=== PATIENT | male | born 1985 | race Caucasian/White ===

== ENCOUNTER 2020-07-17 16:41 | Inpatient (IN) | payer OTHER ==
[~2020-07-17] VITALS: Ht 182.9 cm; Wt 108.7 kg
--- NOTE | 2020-07-17 09:59 | NUR ---
[facility] COVID TEST RESULTS FROM TEST DATED 07/15/20 - NEGATIVE.
[2020-07-18] MEDS ORDERED: ONDANSETRON ODT4 MG SUBLING (10:24)
[2020-07-18] MEDS ORDERED: TYLENOL325 MG PO (10:25)
[2020-07-18] MEDS ORDERED: SENNA PLUS TAB1 EACH PO (10:27)
[2020-07-18] MEDS ORDERED: MILK OF MA2400 MG/11 PO (10:30)
[2020-07-18] MEDS ORDERED: SUPER THERAVIT1 EACH PO (10:31)
[2020-07-18] MEDS ORDERED: FOLIC ACID1 MG PO (10:32)
[2020-07-18] MEDS ORDERED: VITAMIN B-1100 M2 PO (10:33)
[2020-07-18] MEDS ORDERED: LORAZEPAM 1 MG T1 MG PO (10:37)
[2020-07-18] MEDS ORDERED: LORAZEPAM2 MG/1 ML IM (10:39)
[2020-07-18] MEDS ORDERED: HALDOL5 MG/1 ML IM (10:43)
[2020-07-18] MEDS ORDERED: BENADRYL25 MG PO (10:44)
[2020-07-18] MEDS ORDERED: CLONIDINE HCL0.1 MG PO (10:47)
[2020-07-18] MEDS ORDERED: NEURONTIN 300M300 M2 PO (10:48)
[2020-07-18] MEDS ORDERED: DESYREL150 MG PO (10:51)
[2020-07-18] MEDS ORDERED: GEODON20 MG PO (10:53)
[2020-07-18] MEDS ORDERED: CHLORDIAZEPOXIDE5 M2 PO (10:55)
[2020-07-18] MEDS ORDERED: LISINOPRIL20 MG PO (10:56)
[2020-07-18] MEDS ORDERED: NORVASC10 MG PO (10:58)
[2020-07-18] MEDS ORDERED: NORCO5 PO ×2 (10:59→11:00)
[2020-07-18] MEDS ORDERED: TRAMADOL 50 MG50 MG PO (11:01)
[2020-07-18] MEDS ORDERED: CEPHALEXIN500 MG PO (11:05)
[2020-07-18] MEDS ORDERED: BACTRIM DS TAB1 EAC1 PO (11:07)
[2020-07-18] MEDS ORDERED: DORYX MPC120 MG PO (11:09)
[2020-07-18] MEDS ORDERED: NORVASC5 MG PO (14:31)
[2020-07-18] MEDS ORDERED: CATAPRES-TTS 20.2 MG TRANSDERM (14:33)
[2020-07-18] MEDS ORDERED: TRAZODONE HCL50 MG PO ×2 (14:42→14:43)
[2020-07-18 16:45] VITALS: BP 147/96
--- NOTE | 2020-07-18 17:33 | NUR ---
1700 PATIENT ADMITTED TO ROOM 511 FROM [facility] AT [facility]. PATIENT IS ALERT AND ORIENTED X4. PATIENT GASPAR'S, REPEATER OPERATOR ARE EQUAL. LUNGS ARE CLEAR. ABD IS SOFT WITH BSX4. VOIDING ALICIA COLORED URINE PER URINAL. PATIENT WEARS GLASSES. PATIENT HAS HX OF HTN, ETOH ENCEPHALOPATHY AND L.E. WEAKNESS. PATIENT HAS NO IV ACCESS. CONSENTS SIGNED, CALL LIGHT IN REACH. PATIENT STARTED ON HEART HEALTHY DIET. FALL AND SAFETY PROTOCOLS IN PLACE. HAS RIGHT HIP PAIN. WILL HAVE PT, OT, ST EVALS IN A.M. PATIENT ORIENTED TO ROOM, CONTROLS, AND POLICY'S AND PROCEDURES AT [facility]. REHAB NOTEBOOK GIVEN TO PATIENT. WILL CONTINUE TO MONITER.
[2020-07-18 19:30] VITALS: BP 140/93
--- NOTE | 2020-07-19 01:27 | NUR ---
assumed care approx 1900 evening 07/18. pt sitting up in bed at change of shift. pt alert and oriented x4, appropriate and cooperative. pt given emotional support and active listening as he expressed desire to improve his situation and get stronger and go to alcoholic rehab in future and wants to be present for his young daughter and . pt took hs meds with water tolerating well. urinal at bedside. bed alarm on and call light in reach. will continue to monitor.
[2020-07-19 04:50] LABS: HEMATOCRIT 39.2 % (42.0-52.0); HEMOGLOBIN 13.5 gm/dL (14.0-18.0); MCH 32.1 pg (26.0-34.0); MCHC 34.4 g/dL (28.0-37.0); MCV 93.1 fL (80.0-100.0); RBC 4.21 mil/uL (4.50-6.00); RDW 14.5 % (10.5-14.5); WBC 7.7 thou/uL (4.0-11.0)
[2020-07-19 04:56] LABS: CALCIUM 9.4 mg/dL (8.5-10.1); CREATININE 0.9 mg/dL (0.7-1.3); POTASSIUM 4.4 mmol/L (3.5-5.1)
--- NOTE | 2020-07-19 11:25 | NUR ---
ASSUMED CARE AT 0700. SLEPT OFF AND ON. REPORTED R HIP PAIN AND TREATED WITH TYLENOL AND RECEIVED SOME PAIN RELIEF. ALERT AND ORIENTATED X 4, PLESANT AND COOPERATIVE. PT IS DETERMINED GETTING BETTER AND ABLE TO GO HOME SOON TO BE WITH FAMILY. NO SIGN OF ALCOHOL WITHDRAWAL. ABLE TO GET UP USING THE WALKER AND GAIT BELT. VOIDS PER URINAL. LAST BM 07/18. SEEN BY PSYCH AND SOME MEDS CHANGES DONE.
[2020-07-19 19:10] VITALS: BP 134/81
--- NOTE | 2020-07-20 02:35 | NUR ---
ASSUMED CARE AT 1900 ON 07/19. A&OX4. REPORTED PAIN IN LEFT ANKLE, PAIN MANAGED WITH PRN TYLENOL AND ICEPACK. PATIENT REPORTED PARTIAL PAIN RELEIF. PATIENT ALSO REQUESTED FOR TRAZADONE AT 2300 FOR DIFFICULTY SLEEPING. SLEEP AID WAS EFFECTIVE, PATIENT CURRENTLY SLEEPING. URINAL AT BED SIDE. BED ALARM ON. NO COCNERNS AT THIS TIME WILL CONTINUE TO MONITOR.
[2020-07-20 07:15] VITALS: BP 113/69
--- NOTE | 2020-07-20 09:00 | NUR ---
chart review. cm intro to linda. unable to visit at this time rt going to work with speech therapy. noted he lives at home in apartment with and baby. works at [employer], is nurse. 12 steps to apartment. has not been working. has family near by. went to hospital for aggression, alcohol binge drinking and was transfer here from another hospital for rehab. hx of alcohol and cocaine use. independent when feeling ok, hx falls. pt passed on to speech that he wants resources for outpt alcohol support. will cont following as needed for dc needs.
--- NOTE | 2020-07-20 11:22 | NUR ---
ASSUMED CARE AT 0700. PT REPORTED FEELING TIRED THIS MORNING BECAUSE HE DID NOT GET ENOUGH SLEEP FROM YESTERDAY. HE TOOK THE TRAZADONE AND MANAGED TO SLEEP FOR A SHORT WHILE. DR QUICK (PSYCH) INCREASED HIS TRAZADONE TO 100MG. ALSO NOTED HIS L MEDIAL FOOT HAS A BUNION WITH THE BLISTER OPEN AND NOTED BLEEDING AND SOME PUS. PINKY WITH WOUND CARE NOTIFIED AND WOUND CARE DONE. PT REPORTED L ANKLE PAIN AND RECEIVED RELIEF WITH TYLENOL. UP WITH MOD ASSIST TO THE BATHROOM. CARMELO ALVAREZ. HAD A LARGE BM TODAY. PARTICIPATING WITH THERAPY. NO REPORTED IMPULSIVENESS OR HALLUCINATION. SEEMS TO BE PLESANT AND COOPERATIVE.
[2020-07-20 20:16] VITALS: BP 105/62
--- NOTE | 2020-07-21 01:32 | NUR ---
PT ASSESSMENT COMPLETED. BP 105/62 THIS EVENING. CONTACTED ENROBING MACHINE CORDER REGARDING BP MEDICATION AND WAS ASKED TO HOLD DOSE THIS EVENING. PT TALKED A LOT ABOUT HIS ETOH HX AND WAS VERY THANKFUL FOR BEING SOBER AT THIS TIME. HE PLANS TO STAY SOBER. TALKED WITH PT ABOUT PLAN AFTER DC TO CONTINUE HIS SOBRIETY. PT WANTS TO HAVE A PLAN IN PLACE. PROVIDED MUCH EMOTIONAL SUPPORT. PT SLEEPING WELL AT THIS TIME AFTER GETTING SLEEPING MEDICATION THIS EVENING. PT VOIDING LARGE AMOUNT FO CYU. WILL CONTINUE TO MONITOR FREUQENTLY.
[2020-07-21 08:00] VITALS: BP 137/69
--- NOTE | 2020-07-21 08:36 | NUR ---
PT WAKING UP AT THIS TIME AND SITTING UP FOR BREAKFAST. PT TOOK MEDS WITH THIN WATER. PT STATED HE HAS SOME PAIN TO RT HIP OF 10 ON 1-10 SCALE. PT STATED HE HAS VASCULAR NECROSIS, BONE ON BONE. HE STATED HE BEARS WT TO LEFT HIP AND ANKLE TO OFFLOAD RT SIDE. PT HAS WOUND TO LEFT GREAT TOE AND DRESSING IS INTACT. PT TALKED ABOUT WHEN HE DISCHARGES TO GET OUT PATIENT ETOH REHAB.
--- NOTE | 2020-07-21 08:53 | HC ---
[facility] [place] [address] [place] [address] CONSULTATION Name: USHA FENG Radha Room #: 511-P ADM IN M.R.#: [id number] Admission: 07/18/20 Attend Phys: Demetrius Solomon MD Discharge: Date of : 81 Report #: [id number] THIS REPORT FOR: cc: FAM - Family physician unknown FAM - Family physician unknown Bennie Stewart DO ~ DOC #: [id number] BENNIE Stewart DO DATE OF SERVICE: 07/19/2020 INPATIENT PSYCHIATRIC CONSULTATION PRIMARY ATTENDING: Demetrius Solomon MD CONSULTING HOSPITALIST: Mohsen Paul MD. MIDDLE SCHOOL LIBRARIAN: Bennie Stewart DO SOURCES OF INFORMATION: Large packets of records from [facility] where the patient was admitted on 07/07/2020 and then transferred to [facility] where the patient was admitted on 07/10/2020, chart review here at [facility]. HISTORY OF PRESENT ILLNESS: This is a 35-year-old male who has been admitted to the rehabilitation unit at [facility]. Apparently, his is a nurse at [facility] and is on that insurance, so that is what got him sent over to the [facility]. The patient's admission at [facility] was the first thing that happened, so we will attempt to start with that as far as what has been happening with this young man, so on 07/07/2020, the patient presents from [facility] via EMS with reports from staff at [facility] that the patient is confused and hallucinating. The patient was alert and oriented x4. Denies complaints of pain. Last drink of alcohol per his report was Monday evening 07/05/2020. From [facility] he was sent to [facility] from [facility] so that is a freestanding psychiatric hospital detox place. He was currently under care for alcohol detoxification after prolonged 10-year history of daily alcohol intake. The patient actually told me it was 15 years. Apparently, the patient with confusion, hypertension, and diaphoresis at [facility], was brought to the ED for further evaluation. Alcohol, he drinks beer several times per day. SUBSTANCE USE: Marijuana 1-2 times per month. He did not admit that, but that is from the [facility] paperwork, reports quitting smoking 5 years ago. FAMILY HISTORY: His father had early onset Alzheimer's disease and at 44. [facility] [address] [place] [address] CONSULTATION Name: FENGUSHA Lipscomb Room #: 511-P [facility]#: [id number] Admission: 07/18/20 Attend Phys: Demetrius Solomon MD Discharge: Date of : 81 Report #: [id number] He states his grandfather had alcoholism. I will not review the old laboratories from [place] because they are too far back, but will review the major events of things. It states he had delirium tremens and was diagnosed at [facility], confused and unable to provide many details. Per records, the patient drinks 10 beers and a pint of alcohol daily for the past 7 years. Last drink was 07/05/2020. The patient denied history of seizures. The patient had tachycardia, anxiety, restlessness, hypertensive, confused and they give him IV Ativan and IV phenobarbital. PAST MEDICAL HISTORY: Includes hypertension, right hip avascular necrosis, neuropathy, left foot bunion. SURGICAL HISTORY: He had a left foot bunionectomy. It looks like Dr. Pardo did see him at [facility]. She is the consulting psychiatrist there and I am trying to find her reports, but it is nowhere to be found in the records, so we will move on to the [facility] aspect of his hospitalization, admitted there on 07/10/2020. 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 EKG at [place] showed normal sinus rhythm and right bundle branch block. Chest x-ray was negative. Troponin is normal. D-dimer is normal. Platelets low 100. Recent stressors, he had a of his daughter in March 2019, she is now 15 months old in coronavirus pandemic. His is a nurse, so she is exposed to this. He admits to drinking heavily and sought treatment on a few occasions. He told me he had not been to chemical dependency treatment program before his stay at [facility] very brief. He is concerned about early cardiac disease in his father and paternal grandfather. His is concerned about history of bipolar disorder that required inpatient treatment and Depakote therapy at [facility] several years ago. Again, the patient did not report bipolar disorder to me. Blood pressure was in 170s/100s after his admission at [place]. It looks like by the time he got to [place], he was given getting amlodipine, [place], Ultram, hydrocodone, Keflex, Bactrim-DS, and doxycycline. Actually, I found a different medication list. The Mateodon was started on 07/10/2020 at [facility]. They were giving him Benadryl, lorazepam for withdrawal. Those kinds of things that were going on, Prince Rm was his hospitalist, it appears. There is a document looking like it may be a psychiatric consultation. Dr. Canales saw him, he is a neurologist at [facility] and Dr. Canales noted prolonged alcohol withdrawal syndrome and doubt that he has early Alzheimer's, still too soon to state that this is Korsakoff dementia. Last dose of lorazepam was 07/15/2020, so I think the bipolar disorder is put on there as a historic diagnosis. Will review some labs, his [facility] [address] [address] CONSULTATION Name: USHA FENG Radha Room #: 511-P [facility] IN ..#: [id number] Admission: 07/18/20 Attend Phys: Demetrius Solomon MD Discharge: Date of : 81 Report #: [id number] SARS COVID test was negative on 07/15/2020. On 07/16/2020, white count was 8.1, H and H 13.7 and 40.5, platelet count 424. I spoke with the patient that he will be getting a consultation by Dr. Mcbride from neuropsychology, so that more address his memory difficulties. MENTAL STATUS EXAMINATION: Seated in bed, wearing glasses, no apparent distress. This is a well-developed, unkempt male, linton, glasses, tattoos over bilateral upper extremities on his left forearm. Mohawk writing on left forearm but interestingly the patient denies Jehovah'S Witness, I believe, he said a Worship denomination. Anyways, attention fair. Concentration limited. Speech normal rate, volume, and tone. Thought process linear and goal directed. Thought content: Focused on his rehabilitation. He says he is doing for himself primarily. No psychomotor agitation. No psychomotor retardation. Orientation: He knew the month, the year, the day of the week. He said the date was when it was actually the . Insight and judgment were fair. Fund of knowledge, no greater than average. Mood and affect were euthymic, congruent. He denied suicidal or homicidal ideation, auditory, visual, or tactile hallucinations. Denied hopelessness, helplessness. LABORATORY DATA: Today here at [facility], H and H 13.5 and 39.2. White count 7.7, platelet count is actually slightly elevated at [id number], so that is interesting. Electrolytes: Sodium 135, potassium 4.4, chloride 100, bicarbonate 26, anion gap 9, BUN 10, creatinine 0.9, estimated GFR 95, glucose 99, calcium 9.4. CURRENT MEDICATIONS: In the rehabilitation unit, clonidine transdermal patch 0.2 mg weekly; for hypertension, lisinopril 40 mg p.o. daily; folic acid 1 mg p.o. daily; thiamine 100 mg p.o. t.i.d., I had asked Dr. Paul and increased from daily to t.i.d. for good measure; gabapentin 300 mg p.o. t.i.d.; Geodon 20 mg p.o. at bedtime; trazodone 50 mg p.o. at bedtime; amlodipine 5 mg p.o. b.i.d.; lorazepam 1 mg p.o. q.6h. p.r.n.; Benadryl 25 mg p.o. q.4h. and I am not sure if that is for anxiety, itching, I see some pharmacotherapy duplication. He is also on senna daily. Otherwise, house p.r.n's. DIAGNOSES: Substance use disorder for alcohol, severe degree. Alcohol withdrawal delirium which is resolving, but not fully resolved. He is a rule out for Wernicke-Korsakoff syndrome, doubting that at the moment. The patient has number of other issues, obesity, hypertension, neuropathy. FORMULATION: A 35-year-old male, brought in initially to [facility] and the [facility], so now to [facility], so his fourth hospital since 07/06/2020. It looks [facility] [place] [address] CONSULTATION Name: USHA FENG Room #: 511-P ADM IN M.R.#: [id number] Admission: 07/18/20 Attend Phys: Demetrius Solomon MD Discharge: Date of : 81 Report #: [id number] like, the patient has had a complicated alcohol withdrawal with delirium tremens. DIAGNOSIS: Delirium due to complicated Alcohol withdrawl, Alocohol Use Disorder severe RECOMMENDATIONS: Several things. There were too many medications he is getting that may adeversly effect his rehabilitation. I do not think he needs to be on lorazepam, Benadryl and Geodon at this time. The Geodon dose is low and he is on trazodone too, so at this time, I would discontinue the Geodon, discontinue the lorazepam. Use Benadryl for sleep and anxiety. Change the trazodone to p.r.n., as a backup if he truly cannot get to sleep by midnight. I agree with good nutrition support, intensive rehabilitation, need to follow along with him to see if there is any return of psychosis or issues like that. Dr. Solomon did see him yesterday and that is good. Regarding Dr. Paul's consultation, brief 10-point review of systems was done by Dr. Paul and was negative. A couple other past medical history is noted from Dr. Paul's consultation, history of gout. Time spent on this case is greater than 60 minutes, 50% of time spent on review of records, coordination of care. DO RAFA Jones/BRIJESH/ELVIE <ELECTRONICALLY SIGNED> By: Bennie Stewart DO 07/21/20 0853 [id number] Bennie Stewart DO /nt
--- NOTE | 2020-07-21 10:11 | NUR ---
ADM TYLENOL 325MG 2 TABS PO FOR PAIN TO RT HIP OF 6 ON 1-10 SCALE.
--- NOTE | 2020-07-21 13:42 | NUR ---
team meeting, 300ft with walker. hand rails on steps, poor tolerance for age. crutches used in past. working on walking with out dme. mid/mod/mod cog/memory. dc 07/24, dr carpio talk with pt and . dc inpt drug and ethol vs outpt drug and ethol tx and outpt physical.
--- NOTE | 2020-07-21 18:04 | NUR ---
PT HAD A GOOD DAY TODAY WORKING WITH THERAPY. PT TOOK TYLENOL PO FOR PAIN. PT STATED HE HAS LIVED WITH THE PAIN TO RT HIP FOR YEARS NOW.
[2020-07-21 19:12] VITALS: BP 119/73
--- NOTE | 2020-07-22 00:58 | NUR ---
PT ASSESSMENT COMPLETED AND VSS. MEDS GIVEN ORDERED AND WELL TOLERATED. FALL PRECAUTIONS IN PLACE. VOIDING LARGE AMOUNT OF YELLOW URINE. DRESSING TO R GREAT TOE COMPLETED ORDERED. PRN TYLENOL HELPFUL FOR RIGHT HIP PAIN. PT SLEEPING AT THIS TIME AFTER GETTING SLEEPING MEDICATION. WILL CONTINUE TO MONITOR FREQUENTLY.
[2020-07-22 08:00] VITALS: BP 126/77
--- NOTE | 2020-07-22 15:37 | PLAN ---
[facility] [place] [address] [place] [address] REHAB UNIT PLAN OF CARE Name: USHA FENG Radha Room #: 511-P ADM IN M.R.#: [id number] Admission: 07/18/20 Attend Phys: Demetrius Solomon MD Discharge: Date of : 81 Report #: [id number] THIS REPORT FOR: cc: FAM - Family physician unknown FAM - Family physician unknown Demetrius Solomon MD ~ DOC #: [id number] Demetrius Solomon MD DATE OF SERVICE: 07/20/2020 PROGRESS NOTE AND OVERALL PLAN OF CARE HISTORY OF PRESENT ILLNESS: The patient is seen back today in followup. He was in no distress. Last recorded temperature 99.3, pulse 82, respirations 20, and blood pressure 134/81. He has been utilizing trazodone to help with sleeping. Functionally, he has been working in therapies with transfer standby assistance, gait min assist 10 feet without a device. Occupational therapy is being further evaluated as well as speech therapy. Neurology did see him. They did not indicate any evidence of Wernicke's encephalopathy or Korsakoff phenomenon. He is to continue with thiamine. He is on Neurontin and Desyrel. Ativan as needed, but could be discontinued since there is no more agitation. No further recommendations. Psychiatry is also consulted and Dr. Stewart saw the patient. Note that the Geodon has been discontinued. IMPRESSION: 1. Alcoholic encephalopathy. 2. Alcohol dependence with withdrawal. 3. Generalized weakness and debilitation. 4. History of bipolar disorder. Psychiatry has been involved and Geodon has been stopped. 5. Right hip avascular necrosis. To follow up with ortho as an outpatient. 6. Thrombocytopenia. Appears resolved. 7. History of Gout. 8. Hypertension. PLAN: The overall plan of care is based on the pre-admit screen and information garnered from therapy assessments. 1. Estimated length of stay probably 7-14 days pending progress. 2. Medical prognosis is reasonably good. 3. Anticipated interventions includes the interdisciplinary acute inpatient rehabilitation program. 4. Anticipated functional outcomes would be for the patient to become modified independent with transfers, mobility, ADLs and improved cognition, so he can return back to the home setting. 5. Discharge destination would be back to the home setting where he lives with his . The plan is to go to an alcohol treatment center as well, [place] [address] REHAB UNIT PLAN OF CARE Name: USHA FENG Room #: 511-P [facility]#: [id number] Admission: 07/18/20 Attend Phys: Demetrius Solomon MD Discharge: Date of : 81 Report #: [id number] need to figure out the details of that. 6. Expected therapy by discipline includes PT, OT and speech 1 hour per day each five days a week throughout the duration of the acute inpatient rehabilitation stay. ADDENDUM: The patient's prognosis for significant practical improvement within a reasonable period of time appears good. Given the patient's complex medical condition and risk of further medical complication, rehabilitation services could not be safely provided at the lower level of care such as a usp facility. Demetrius Solomon MD DGS <ELECTRONICALLY SIGNED> By: Demetrius Solomon MD 07/22/20 1537 0714 0811 Demetrius Solomon MD /nt
--- NOTE | 2020-07-22 15:37 | H ---
[facility] [place] [address] HISTORY AND PHYSICAL Name: USHA FENG Radha Room #: 511-P ADM IN M.R.#: [id number] Admission: 07/18/20 Attend Phys: Demetrius Solomon MD Discharge: Date of : 81 Report #: [id number] THIS REPORT FOR: cc: FAM - Family physician unknown FAM - Family physician unknown Demetrius Solomon MD ~ DOC #: [id number] Demetrius Solomon MD DATE OF SERVICE: 07/18/2020 HISTORY OF PRESENT ILLNESS: The patient is a 35-year-old male with a history of high blood pressure, bipolar disorder and alcohol dependence, who was admitted to [facility] with alcohol detoxification, alcoholic encephalopathy, gait instability. He has been a heavy drinker around 10 beers a day plus a pint of whiskey every other day. He had a binge drinking episode, was admitted to [facility] for severe agitation and alcohol withdrawal. He was subsequently moved to [facility] for further care. There was concern for possible Korsakoff syndrome. He now notes that he wants to stop drinking and is open to the rehabilitation and is open to alcohol rehab after physical rehabilitation. He has been admitted for acute in-hospital inpatient rehabilitation. He was monitored for thrombocytopenia, has a history of bipolar disorder. PAST MEDICAL HISTORY: Includes hypertension, avascular necrosis of the right hip. He notes that he is considering surgery once he has completed his rehabilitation with a partial joint replacement. He has a history of substance abuse as noted. Bipolar laceration on the right hand fingers. Past medical history also includes anxiety and gout. MEDICATIONS: Please see the full medication listing. FAMILY HISTORY: Includes early onset Alzheimer's and history of cardiac disease in relatives. HABITS: Noted above. Heavy alcohol use. Former substance abuse includes cocaine. SOCIAL HISTORY: Currently lives with his in an apartment along with her [id number] daughter. 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 Their lease apparently ends on 08/07 and they are planning on moving into a three bedroom house. There is a mother that lives close as well as a [id number] and there is also a sister and [id number] and that lives close. REVIEW OF SYSTEMS: No chest pain, shortness of breath, abdominal discomfort. Emotionally, he appears to be doing reasonably well. He has the chronic right hip pain and notes that he is able to get by without any narcotics. No bowel or [facility] [address] [place] [address] HISTORY AND PHYSICAL Name: USHA FENG Radha Room #: 511-P [facility]#: [id number] Admission: 07/18/20 Attend Phys: Demetrius Solomon MD Discharge: Date of : 81 Report #: [id number] bladder issues were noted. Again, he has had the recent lacerations, right hand fingers. Review of systems otherwise benign. PHYSICAL EXAMINATION: GENERAL: He is a pleasant 35-year-old male, in no obvious distress. VITAL SIGNS: Temperature 37.5, pulse 85, respirations 16, blood pressure 140/93. Alert, appropriate, cooperative. Facies are symmetric. HEENT: Appeared to be benign. CHEST: Sounded clear to auscultation. CARDIOVASCULAR: Regular rate and rhythm. ABDOMEN: Bowel sounds positive, nontender. GENITOURINARY AND RECTAL: Deferred. EXTREMITIES: He has functional range of motion of both upper extremities. He does have some tremulousness of both hands, is able to [id number] without difficulty. Lower extremities, no focal calf swelling. I did not range the right hip, but he was able to move it reasonably well on his own. Strength to the lower extremities is probably a grade 4-/5. He has been min assist with basic transfers utilizing a front-wheeled walker, short step with some antalgia right lower extremity. He does have some slowing of his cognitive responses, but otherwise really does quite well. ASSESSMENT: A 35-year-old male with the following problems: 1. Alcoholic encephalopathy, which appears to be improving. He is continuing on thiamine with Ativan p.r.n. 2. Alcohol dependence with withdrawal. 3. 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 4. Generalized weakness and debilitation. 5. History of bipolar disorder. Noted to have prior psychiatric hospitalization and treatment with Depakote and is on Geodon with psychiatry consulted. 6. Right hip avascular necrosis. To follow up with ortho as an outpatient. 7. Thrombocytopenia to follow. 8. History of gout. 9. Hypertension. PLAN: The patient has been admitted for acute in-hospital inpatient rehabilitation. Please see the patient's previous and current functional status. As far as risk of complications, he has the above noted medical comorbidities. Plan of care involves the interdisciplinary acute inpatient rehabilitation program. Prognosis is reasonably good with estimated length of stay probably 7-14 days pending progress. Potential barriers would include his multiple medical comorbidities and decreased functional status. [facility] [address] [place] [address] HISTORY AND PHYSICAL Name: USHA FENG Room #: 511-P ADM IN M.R.#: [id number] Admission: 07/18/20 Attend Phys: Demetrius Solomon MD Discharge: Date of : 81 Report #: [id number] Demetrius Solomon MD DGS/HUS <ELECTRONICALLY SIGNED> By: Demetrius Solomon MD 07/22/20 [id number] [id number] Demetrius Solomon MD /nt
--- NOTE | 2020-07-22 18:09 | NUR ---
Visited with the pt at bedside regarding ethol tx options. He does not want inpt tx but agreeable to IOP. [facility] phone numbers for IOP provided as they are likely in network with his ins plan. He will call them in the morning to work on getting this set up for himself. All parties anticipating dc to home with his on Monday at 2pm. Support and encouragement given.
[2020-07-22 19:28] VITALS: BP 115/61
--- NOTE | 2020-07-23 00:50 | NUR ---
ASSUMED CARE OF PT AT 1300. PT WAS ASLEEP UPON START OF SHIFT. WHEN AWAKE, A&OX4. FINE TREMORS NOTED. REPORTS PAIN IN RIGHT HIP THAT IS BEING AMANAGED WITH ORAL PAIN MEDS & OTHER THERAPUETIC TECHNIQUES. IS UP WITH STANDBY ASSIST, GB, CRUTCHES. FALL PRECAUTIONS & HOURLY ROUNDING CONTINUED. LABS & VITALS REVIEWED. PT IS ABLE TO REPOSITION SELF IN BED. VOIDS PER URINAL. PT WOULD LIKE TO F/U WITH CM IN AM REGARDING OUTPT REHAB THERAPY. RELIEVING NURSE NOTIFIED. WILL PASS ON TO DAY SHIFT NURSE. PT IS TO REQUEST ALL MEDS. SLEEPING AID REQUESTED & ADMINISTERED. PT IS CURRENLY ASLEEP. CALL LIGHT WITHIN REACH. WILL CONTINUE TO MONITOR.
--- NOTE | 2020-07-23 02:20 | NUR ---
ASSUMED CARE APPROX 0001 07/23. PT IN BED SLEEPING. PT GIVEN PO BENADRYL AND TYLENOL PO FOR PAIN AND SLEEP. PT VOIDING PER URINAL LARGE AMT CLEAR, YELLOW URINE. PT NOW BACK TO SLEEP. BED ALARM ON AND CALL LIGHT IN REACH. WILL CONTINUE TO MONITOR.
--- NOTE | 2020-07-23 02:22 | NUR ---
CONCUR WITH REASSESSMENT FROM ANA DANIELLE. NO FURTHER ADDITIONS TO NOTE.
[2020-07-23 08:00] VITALS: BP 122/83
--- NOTE | 2020-07-23 10:30 | NUR ---
PT BACK FROM THERAPY. PT GETTING A SHOWER FOR LAST OT THERAPY TODAY, PT D/C TOMMORROW. PT DIDN'T COMPLAIN OF ANY WORSE PAIN TO HIS RT HIP. PT USEING CRUTCHES FOR AMBULATION. PT HAD BM YESTERDAY. PT TOLERATING ACTIVITY. PT STATED HE HAS TO CALL THESE OUT PATIENT ETOH PROGRAMS.
--- NOTE | 2020-07-23 10:53 | HC ---
[facility] [place] [address] CONSULTATION Name: USHA FENG Radha Room #: 511-P ADM IN M.R.#: [id number] Admission: 07/18/20 Attend Phys: Demetrius Solomon MD Discharge: Date of : 81 Report #: [id number] THIS REPORT FOR: cc: FAM - Family physician unknown FAM - Family physician unknown Watson Doshi MD ~ DOC #: [id number] Watson Doshi MD DATE OF SERVICE: 07/20/2020 CHIEF COMPLAINT: Toe ulceration. HISTORY OF PRESENT ILLNESS: This is a 35-year-old male patient with a history of bipolar disorder and alcohol dependence, who was admitted to the [facility] re[facility] after detoxing from alcohol. He is a heavy drinker, drinking about 10 beers per day plus a pint of whiskey every other day. He had apparently been binge drinking, was admitted later with agitation. He was noted to have an ulceration to his left great toe and I have been asked to see him with regard to wound care. He is uncertain as to how it began. 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 MEDICATIONS: Include ondansetron, acetaminophen, magnesium hydroxide, thiamine, lorazepam, Haldol, gabapentin, Geodon, lisinopril, [place], tramadol, clonidine, trazodone. ALLERGIES: No known drug allergies. FAMILY HISTORY: Noncontributory. REVIEW OF SYSTEMS: CONSTITUTIONAL: The patient denies fever, chills or weight loss. NEUROLOGIC: Denies focal weakness, numbness or tingling. EYES: The patient denies visual changes, but has drainage. ENT: The patient denies earache, nasal drainage or no sore throat. CARDIOVASCULAR: The patient denies chest pain, palpitation, diaphoresis. PULMONARY: The patient denies cough or shortness of breath. GASTROINTESTINAL: The patient denies nausea, vomiting, diarrhea, abdominal pain. ORTHOPEDIC: The patient has ulceration of the left great toe. Others systems and a 14-point review of systems are negative PHYSICAL EXAMINATION: VITAL SIGNS: At this time include temperature 36.8, pulse 80, respiratory rate [address] [address] CONSULTATION Name: USHA FENG Room #: 511-[facility] IN ..#: [id number] Admission: 07/18/20 Attend Phys: Demetrius Solomon MD Discharge: Date of : 81 Report #: [id number], blood pressure 113/69. GENERAL: This is a well-built male patient appears to be in mild stress. HEENT: Head normocephalic. Nose and throat are clear. NECK: Supple. LUNGS: Clear. HEART: Regular. ABDOMEN: Soft. Bowel sounds present. EXTREMITIES: Lower extremities demonstrate easily palpable pulses with normal hair growth pattern on the feet bilaterally. He has normal capillary refill. There is a small ulceration involving the left great toe medial portion near the interphalangeal joint. There are no deep structures exposed. It is relatively clean and granulating, does not appear to be overtly infected. LABORATORY STUDIES: Include sodium 135, potassium 4.4, chloride 100, CO2 of 26, BUN 10, creatinine 0.9, glucose of 99, calcium is 9.4. White blood cell count 7.7, hemoglobin 13.5. CLINICAL IMPRESSION: 1. Ulceration to the left great toe. 2. Bipolar disorder. 3. History of alcohol dependence and withdrawal. 4. Hypertension. RECOMMENDATIONS: At this point in time, I think simple wound care would be appropriate. We will recommend topical gentamicin ointment and a Band-Aid or bordered foam to be changed daily. I think he can maintain a normal weightbearing and ambulation. I appreciate being asked to see him in consultation. MD LU Hallman/YOLY <ELECTRONICALLY SIGNED> By: Watson Doshi MD 07/23/20 1053 [id number] Watson Doshi MD /nt
--- NOTE | 2020-07-23 15:09 | NUR ---
ADM TYLENOL 325MG 2 TABS PO FOR PAIN TO RT HIP OF 8 ON 1-10 SCALE. PT DID CALL [facility] AND HAS AN ASSESSMENT SCHEDUALED MONDAY.
[2020-07-23 19:32] VITALS: BP 123/72
--- NOTE | 2020-07-24 01:00 | NUR ---
ASKING FOR TYLENOL AND BENADRYL TO DECREASE HIP PAIN HE HAD ASKED FOR ROUTINE HS MEDS EARLIER. PATIENT UP MODIFIED INDEPENDENT IN ROOM. LOOKING FORWARD TO GOING HOME TODAY AND HOPING HE CAN SLEEP BETTER ONCE HE IS THERE
[2020-07-24 07:15] VITALS: BP 130/73
--- NOTE | 2020-07-24 08:30 | NUR ---
cm visited with [facility] for ethol and drug support. " i have appointment on 2pm at [place] and have found aa group can go to over the weekend. then will yeny appointment on 07/29 or with [facility] to see if can get outpt therapy"/linda. will cont following as needed for dc needs. will cook pickled meat around 1400 today.
[2020-07-24] MEDS ORDERED: FOLIC ACID1 MG PO (10:12)
[2020-07-24] MEDS ORDERED: NEURONTIN 300M300 M2 PO (10:12)
[2020-07-24] MEDS ORDERED: LISINOPRIL10 MG PO (10:12)
[2020-07-24] MEDS ORDERED: VITAMIN B-1100 M2 PO (10:12)
[2020-07-24 10:45] VITALS: BP 130/73
--- NOTE | 2020-07-24 12:18 | NUR ---
ADM TYELENOL 325MG 2 TABS PO FOR PAIN TO RT HIP.
[2020-07-24 12:19] VITALS: BP 130/73
[2020-07-24] MEDS ORDERED: TRAZODONE HCL50 MG PO (12:34)
--- NOTE | 2020-07-24 14:11 | NUR ---
PT HERE TO PICK HIM UP. PT STATED EARILER THAT HE DIDN'T HAVE CRUTCHES, PT STATED HE DOES HAVE CRUTCHES AT HOME. WENT OVER MEDICATIONS WITH PT AND PT EXCITED TO GET HOME TO HIS DTR. PT WHEELED SELF OUT IN W/C TO ELEVATOR.
== END 2020-07-24 14:30 | disposition home or self-care (01) | DRG 57 ==
PROVIDERS: ADMIT Physical Medicine & Rehabilitation; ATTEND Physical Medicine & Rehabilitation
DX: G31.2 Degeneration of nervous system due to alcohol (principal); F10.231 Alcohol dependence with withdrawal delirium; M87.851 Other osteonecrosis, right femur; R53.81 Other malaise; Y90.9 Presence of alcohol in blood, level not specified; F31.9 Bipolar disorder, unspecified; I10 Essential (primary) hypertension; M10.9 Gout, unspecified; D69.6 Thrombocytopenia, unspecified; L97.529 Non-pressure chronic ulcer of other part of left foot with unspecified severity; Z81.8 Family history of other mental and behavioral disorders; Z82.0 Family history of epilepsy and other diseases of the nervous system; Z79.899 Other long term (current) drug therapy
CPT/HCPCS: 10112